=== PATIENT | male | born 1960 | race Caucasian/White ===

== ENCOUNTER 2019-12-23 12:01 | Emergency (ER) | payer MEDICARE, BC ==
[2019-12-23] MEDS ORDERED: cloNIDine 0.1 MG Tab PO ONE (12:29)
[2019-12-23] MEDS ORDERED: LORazepam 1 MG Tab PO ONE (12:30)
[2019-12-23] MEDS ORDERED: Lidocaine 1% with EPINEPHrine 1:100,000 50 ML MDV SUBCUT ONE (12:30)
--- NOTE | 2019-12-23 13:38 | EDM.PDOC ---
ED HPI GENERAL MEDICAL PROBLEM - General Chief Complaint: ENT Problem Stated Complaint: BLOODY NOSE Time Seen by Provider: 12/23/19 12:35 - History of Present Illness INITIAL COMMENTS - FREE TEXT/NARRATIVE: Patient presents emergency department with a right nosebleed. He is on Coumadin has had trouble with nosebleeds in the past he denies any fevers or chills neurological symptoms he denies any lightheadedness or shortness of breath he says previously he has had to have his nose packed but he says he feels that the bleeding coming from more upfront today - Related Data Allergies Allergy/AdvReac Type Severity Reaction Status Date / Time ceftazidime [From Fortaz] Allergy Rash Verified 12/23/19 12:36 piperacillin [From Zosyn] Allergy Rash Verified 12/23/19 12:36 tazobactam [From Zosyn] Allergy Rash Verified 12/23/19 12:36 Home Meds: Home Meds Albuterol [Ventolin HFA] 1 puff INH Q6H PRN 12/23/19 [History] Budesonide/Formoterol Fumarate [Symbicort 160-4.5 Mcg Inhaler] 2 puff IH BID 12/23/19 [History] Fenofibrate,Micronized [Fenofibrate] 134 mg PO DAILY 12/23/19 [History] Fluticasone Propionate [Flonase] 1 spr MANAN BID 12/23/19 [History] Folic Acid 0.8 mg PO BEDTIME 12/23/19 [History] Glucosam/Chond-MSM 2/C/D3/Sunday [[id number]] 2 each PO DAILY 12/23/19 [History] Multivitamin [Multi-Vitamin Daily] 1 tab PO DAILY 12/23/19 [History] Pravastatin [Pravachol] 40 mg PO BEDTIME 12/23/19 [History] Ubidecarenone [Coenzyme Q10] 300 mg PO BEDTIME 12/23/19 [History] Warfarin [Coumadin] 5 mg PO DAILY 12/23/19 [History] carvediloL [Coreg] 18.75 mg PO BID 12/23/19 [History] cephALEXin [Keflex] 500 mg PO Q8H 7 Days cap 12/23/19 [Rx] lisinopriL [Lisinopril] 10 mg PO DAILY 12/23/19 [History] metFORMIN [Glucophage XR] 750 mg PO BID 12/23/19 [History] oxyCODONE 5 mg PO Q4H PRN 12/23/19 [History] Past Medical History HEENT History: Reports: Epistaxis Cardiovascular History: Reports: Hypertension Gastrointestinal History: Reports: Diverticulosis Musculoskeletal History: Reports: Arthritis Neurological History: Reports: Neuropathy, Diabetic, Neuropathy, Peripheral Psychiatric History: Reports: Depression Endocrine/Metabolic History: Reports: Diabetes, Type II, Obesity/BMI 30+ Hematologic History: Reports: Blood Transfusion(s) - Past Surgical History Cardiovascular Surgical History: Reports: Valve Replacement GI Surgical History: Reports: Other (See Below) Other GI Surgeries/Procedures: abscess drainage Social & Family History - Tobacco Use Smoking Status *Q: Never Smoker - Caffeine Use Caffeine Use: Reports: None - Recreational Drug Use Recreational Drug Use: No ED ROS GENERAL - Review of Systems Review Of Systems: Comprehensive ROS is negative, except as noted in HPI. ED EXAM, GENERAL - Physical Exam Exam: See Below General Appearance: Alert Nose: Normal Inspection (Appears to be some blood coming from the right nare, difficult to say if this is anterior or posterior.) Neck: Normal Inspection Respiratory/Chest: No Respiratory Distress Cardiovascular: Normal Peripheral Pulses Back Exam: Normal Inspection Extremities: Normal Inspection Neurological: Alert Course - Vital Signs Text/Narrative:: Procedure note: Anterior nasal packing: I placed an anterior rapid Rhino 5.5 cm pack in the patient's left nare, he was prepped with lidocaine with epinephrine topically and subsequently I used tranexamic acid on the packing, this was successful and patient tolerated this well and he is to have the packing in 2 days. Last Recorded V/S: Last Vital Signs Temp 96.6 F L 12/23/19 12:45 Pulse 84 12/23/19 12:45 Resp 16 12/23/19 12:45 BP 150/91 H 12/23/19 12:45 Pulse Ox 99 12/23/19 12:45 - Orders/Labs/Meds Meds: Medications Discontinued Medications Generic Name Dose Route Start Last Admin Trade Name Freq PRN Reason Stop Dose Admin Clonidine HCl 0.1 mg 12/23/19 12:29 12/23/19 12:36 Catapres PO 12/23/19 12:30 0.1 mg ONETIME ONE Administration Lidocaine/Epinephrine 10 ml 12/23/19 12:30 12/23/19 12:36 Xylocaine 1% With Epinephrine 1:100,000 SUBCUT 12/23/19 12:31 10 ml ONETIME ONE Administration Lorazepam 1 mg 12/23/19 12:30 12/23/19 12:36 Ativan PO 12/23/19 12:31 1 mg ONETIME ONE Administration Tranexamic Acid 500 mg 12/23/19 12:45 12/23/19 12:36 Cyklokapron TOP 12/23/19 12:46 500 mg ONETIME ONE Administration Departure - Departure Time of Disposition: 13:22 Disposition: Home, Self-Care 01 Condition: Fair Clinical Impression: Epistaxis - Discharge Information Instructions: Nosebleed, [id number] Referrals: PCP,None [Primary Care Provider] - Sepsis Event Note (ED) - Evaluation Sepsis Screening Result: No Definite Risk - Focused Exam Vital Signs: Vital Signs Temp Pulse Resp BP BP Pulse Ox 12/23/19 12:45 96.6 F L 84 16 150/91 H 99 12/23/19 12:37 96.6 F L 84 16 150/91 H 99 12/23/19 12:36 150/91 H
== END 2019-12-23 14:12 | disposition home or self-care (01) ==
LOC: JP.ED 12:01
DX: R04.0 Epistaxis (principal); E11.21 Type 2 diabetes mellitus with diabetic nephropathy; I10 Essential (primary) hypertension; E66.9 Obesity, unspecified; Z79.4 Long term (current) use of insulin; Z88.1 Allergy status to other antibiotic agents; Z79.01 Long term (current) use of anticoagulants; Z79.84 Long term (current) use of oral hypoglycemic drugs; Z79.899 Other long term (current) drug therapy; Z68.33 Body mass index [BMI] 33.0-33.9, adult
CPT/HCPCS: 30903; 99283; A9270

== ENCOUNTER 2019-12-24 11:58 | Emergency (ER) | payer MEDICARE, BC ==
[2019-12-24] MEDS ORDERED: Lidocaine 1% with EPINEPHrine 1:100,000 50 ML MDV SUBCUT ONE (13:04)
--- NOTE | 2019-12-24 14:37 | EDM.PDOC ---
ED HPI GENERAL MEDICAL PROBLEM - General Chief Complaint: ENT Problem Stated Complaint: BLOODY NOSE Time Seen by Provider: 12/24/19 13:00 Generalized Pain Score (Numeric/FACES): 6 - Related Data Allergies Allergy/AdvReac Type Severity Reaction Status Date / Time ceftazidime [From Fortaz] Allergy Rash Verified 12/24/19 13:02 piperacillin [From Zosyn] Allergy Rash Verified 12/24/19 13:02 tazobactam [From Zosyn] Allergy Rash Verified 12/24/19 13:02 Home Meds: Home Meds Albuterol [Ventolin HFA] 1 puff INH Q6H PRN 12/23/19 [History] Budesonide/Formoterol Fumarate [Symbicort 160-4.5 Mcg Inhaler] 2 puff IH BID 12/23/19 [History] Fenofibrate,Micronized [Fenofibrate] 134 mg PO DAILY 12/23/19 [History] Fluticasone Propionate [Flonase] 1 spr MANAN BID 12/23/19 [History] Folic Acid 0.8 mg PO BEDTIME 12/23/19 [History] Glucosam/Chond-MSM 2/C/D3/Sunday [[id number]-Tlxcvxmrmib-IKZ] 2 each PO DAILY 12/23/19 [History] Multivitamin [Multi-Vitamin Daily] 1 tab PO DAILY 12/23/19 [History] Pravastatin [Pravachol] 40 mg PO BEDTIME 12/23/19 [History] Ubidecarenone [Coenzyme Q10] 300 mg PO BEDTIME 12/23/19 [History] Warfarin [Coumadin] 5 mg PO DAILY 12/23/19 [History] carvediloL [Coreg] 18.75 mg PO BID 12/23/19 [History] cephALEXin [Keflex] 500 mg PO Q8H 7 Days cap 12/23/19 [Rx] lisinopriL [Lisinopril] 10 mg PO DAILY 12/23/19 [History] metFORMIN [Glucophage XR] 750 mg PO BID 12/23/19 [History] oxyCODONE 5 mg PO Q4H PRN 12/23/19 [History] Past Medical History HEENT History: Reports: Epistaxis Cardiovascular History: Reports: Hypertension, Pacemaker Gastrointestinal History: Reports: Diverticulosis Musculoskeletal History: Reports: Arthritis Neurological History: Reports: Neuropathy, Diabetic, Neuropathy, Peripheral Psychiatric History: Reports: Depression Endocrine/Metabolic History: Reports: Diabetes, Type II, Obesity/BMI 30+ Hematologic History: Reports: Blood Transfusion(s) - Past Surgical History Cardiovascular Surgical History: Reports: Pacer, Valve Replacement GI Surgical History: Reports: Other (See Below) Other GI Surgeries/Procedures: abscess drainage Social & Family History - Tobacco Use Smoking Status *Q: Never Smoker - Caffeine Use Caffeine Use: Reports: None - Recreational Drug Use Recreational Drug Use: No ED ROS GENERAL - Review of Systems Review Of Systems: Comprehensive ROS is negative, except as noted in HPI. ED EXAM, GENERAL - Physical Exam Exam: See Below Course - Vital Signs Last Recorded V/S: Last Vital Signs Temp 95.3 F L 12/24/19 12:57 Pulse 74 12/24/19 12:57 Resp 16 12/24/19 12:57 BP 128/81 12/24/19 12:57 Pulse Ox 100 12/24/19 12:57 - Orders/Labs/Meds Labs: Laboratory Tests 12/24/19 12/24/19 Range/Units 13:09 13:09 WBC 12.3 H (4.5-11.0) K/uL RBC 4.09 L (4.30-5.90) M/uL Hgb 12.1 (12.0-15.0) g/dL Hct 39.7 L (40.0-54.0) % MCV 97 (80-98) fL MCH 30 (27-31) pg MCHC 31 L (32-36) % Plt Count 359 (150-400) K/uL Neut % (Auto) 78 H (36-66) % Lymph % (Auto) 14 L (24-44) % Archer % (Auto) 7 H (2-6) % Eos % (Auto) 2 (2-4) % Baso % (Auto) 0 (0-1) % PT 37.1 H (9.5-12.0) sec INR 3.49 H (0.80-1.20) Meds: Medications Discontinued Medications Generic Name Dose Route Start Last Admin Trade Name Freq PRN Reason Stop Dose Admin Lidocaine/Epinephrine 10 ml 12/24/19 13:04 12/24/19 13:13 Xylocaine 1% With Epinephrine 1:100,000 SUBCUT 12/24/19 13:05 10 ml ONETIME ONE Administration Tranexamic Acid 500 mg 12/24/19 13:04 12/24/19 13:16 Cyklokapron TOP 12/24/19 13:05 500 mg ONETIME ONE Administration Departure - Departure Time of Disposition: 13:00 Disposition: Home, Self-Care 01 Condition: Fair Clinical Impression: Epistaxis - Discharge Information Instructions: Nosebleed, [id number] Referrals: PCP,None [Primary Care Provider] - Forms: ED Department Discharge Additional Instructions: Keep the nasal packing in place and if this needs to bleed will go up at a faci lity that has available ear nose and throat Sepsis Event Note (ED) - Evaluation Sepsis Screening Result: No Definite Risk - Focused Exam Vital Signs: Vital Signs Temp Pulse Resp BP Pulse Ox 12/24/19 12:57 95.3 F L 74 16 128/81 100
== END 2019-12-24 14:47 | disposition home or self-care (01) ==
LOC: JP.ED 11:58
DX: R04.0 Epistaxis (principal); R79.1 Abnormal coagulation profile; I10 Essential (primary) hypertension; M19.90 Unspecified osteoarthritis, unspecified site; E11.40 Type 2 diabetes mellitus with diabetic neuropathy, unspecified; F32.9 Major depressive disorder, single episode, unspecified; E66.9 Obesity, unspecified; Z88.8 Allergy status to other drugs, medicaments and biological substances; Z88.0 Allergy status to penicillin; Z88.1 Allergy status to other antibiotic agents
CPT/HCPCS: 30903; 36415; 85018; 85025; 85610; 96372; 99283; A9270; J3430